=== PATIENT | male | born 1990 | race Caucasian/White ===

== ENCOUNTER 2017-03-03 21:02 | Emergency (ER) | payer BC, OTHER ==
[~2017-03-03] VITALS: Ht 172.7 cm; Wt 100.0 kg
[2017-03-03 21:08] VITALS: Ht 172.7 cm; Wt 100.0 kg
--- NOTE | 2017-03-03 21:33 | ERA ---
ER Documentation Chief Complaint Date/Time DATE: 03/03/17 TIME: 21:32 Chief Complaint n/v/d HPI Patient is a 26-year-old male, presenting to the ER because of nausea, vomiting , diarrhea, fever that began today. He complains of dizziness and tingling on the upper extremities and epigastric abdominal discomfort. He denies chest pain , dyspnea, dysuria. He denies any recent traveling or eating any new foods recently. He smokes socially, drinks socially, smokes marijuana Past medical history: History of peptic ulcer disease Past surgical history: Appendectomy ROS All systems reviewed and are negative except as per history of present illness. Medications Home Meds Active Scripts Loperamide Hcl* (Imodium*) 2 Mg Capsule, 2 MG PO .AFTER EA LOOSE BM Y for DIARRHEA, #10 TAB Prov:ROSIE TODD MD 03/04/17 Ibuprofen* (Motrin*) 600 Mg Tab, 600 MG PO Q6H Y for PAIN AND OR ELEVATED TEMP, #20 TAB Prov:ROSIE TODD MD 03/04/17 Ciprofloxacin Hcl* (Ciprofloxacin Hcl*) 500 Mg Tablet, 500 MG PO BID for 3 Days , TAB Prov:ROSIE TODD MD 03/04/17 Reported Medications Ibuprofen* (Ibuprofen*) 800 Mg Tab, 800 MG PO Q6H Y for PAIN, TAB 03/03/17 Tramadol Hcl* (Ultram*) 50 Mg Tablet, 50 MG PO Q6H Y for PAIN, TAB 03/03/17 Allergies Allergies: Coded Allergies: No Known Allergy (Unverified , 03/03/17) Physical Exam Vitals Vital Signs Date Time Temp Pulse Resp B/P Pulse Ox O2 Delivery O2 Flow Rate FiO2 03/04/17 01:32 99.0 94 15 109/45 100 Room Air 03/04/17 00:19 100.0 105 15 113/55 98 Room Air 03/03/17 21:08 102.6 139 20 105/74 98 Physical Exam Const: No acute distress. Dehydrated Head: Atraumatic. Eyes: Normal Conjunctiva. ENT: Normal External Ears, Nose and Mouth. Bilateral tympanic membranes and oropharynx are within normal limits Neck: Full range of motion. No meningismus. Resp: Clear to auscultation bilaterally. Cardio: Regular but tachycardic Abd: Soft, non distended, normal bowel sounds, vague and diffuse abdominal tenderness, more tenderness at the epigastric area Skin: No petechiae or rashes. Back: No midline or flank tenderness. Ext: No cyanosis, or edema. Neur: Awake and alert. No focal deficit Psych: Normal Mood and Affect. Result Diagram: 03/03/17213403/03/172134 Results 24 hrs Laboratory Tests Test 03/03/17 21:35 03/03/17 21:45 03/03/17 23:21 03/03/17 23:50 White Blood Count 13.610^3/ul Red Blood Count 5.2810^6/ul Hemoglobin 15.9g/dl Hematocrit 45.3% Mean Corpuscular Volume 85.8fl Mean Corpuscular Hemoglobin 30.1pg Mean Corpuscular Hemoglobin Concent 35.1g/dl Red Cell Distribution Width 12.8% Platelet Count 23632^3/UL Mean Platelet Volume 8.9fl Neutrophils % 85.6% Lymphocytes % 6.5% Monocytes % 6.2% Eosinophils % 0.8% Basophils % 0.2% Nucleated Red Blood Cells % 0.0/100WBC Neutrophils # 11.710^3/ul Lymphocytes # 0.910^3/ul Monocytes # 0.910^3/ul Eosinophils # 0.110^3/ul Basophils # 0.010^3/ul Nucleated Red Blood Cells # 0.010^3/ul Prothrombin Time 12.8Sec Prothrombin Time Ratio 1.0 INR International Normalized Ratio 0.96 Activated Partial Thromboplast Time 26.3Sec Sodium Level 139mmol/L Potassium Level 3.4mmol/L Chloride Level 107mmol/L Carbon Dioxide Level 24mmol/L Anion Gap 11 Blood Urea Nitrogen 15mg/dl Creatinine 0.76mg/dl Glucose Level 108mg/dl Calcium Level 9.1mg/dl Total Bilirubin 1.0mg/dl Direct Bilirubin 0.00mg/dl Indirect Bilirubin 1.0mg/dl Aspartate Amino Transf (AST/SGOT) 40IU/L Alanine Aminotransferase (ALT/SGPT) 104IU/L Alkaline Phosphatase 68IU/L Troponin I < 0.012ng/ml Total Protein 7.5g/dl Albumin 4.4g/dl Globulin 3.10g/dl Albumin/Globulin Ratio 1.41 Lactic Acid Level 1.9mmol/L 1.0mmol/L Bedside Urine pH (LAB) 8.5 Bedside Urine Protein (LAB) Negative Bedside Urine Glucose (UA) Negative Bedside Urine Ketones (LAB) Negative Bedside Urine Blood Negative Bedside Urine Nitrite (LAB) Negative Bedside Urine Leukocyte Esterase (L Negative Current Medications Medications (Trade) Dose Ordered Sig/Jackelyn Route PRN Reason Start Time Stop Time Status Last Admin Dose Admin Sodium Chloride (NS) 3,100 ml BOLUS OVER 2 HOURS STAT IV* 03/03/17 21:40 03/03/17 21:43 DC 03/03/17 22:04 Acetaminophen (Tylenol Tab) 650 mg ONCE STAT PO 03/03/17 21:40 03/03/17 21:43 DC 03/03/17 22:07 Ibuprofen (Motrin) 600 mg ONCE ONCE PO 03/03/17 22:00 03/03/17 22:01 DC 03/03/17 22:07 Ondansetron HCl (Zofran Inj) 4 mg ONCE STAT IV 03/03/17 21:40 03/03/17 21:43 DC 03/03/17 22:07 Procedures/[place] [id number] Radiology Main Line: [phone] DIAGNOSTIC IMAGING REPORT Patient: KAREN FALL : 1990 Age: 26 Sex: M MR #: [id number] DOS: 03/03/172139 Ordering MD: ROSIE TODD MD Location: E/R Room/Bed: PROCEDURE: XR Chest. CLINICAL INDICATION: Possible sepsis. TECHNIQUE: Single frontal view of the chest. COMPARISON: None. FINDINGS: The cardiomediastinal silhouette is within normal limits. The lungs are clear. No signs of pleural fluid or pneumothorax are seen. The osseous structures and soft tissues are unremarkable. IMPRESSION: No evidence for active cardiopulmonary disease. RPTAT: [facility] Physician Turner Date Time Electronically viewed and signed by Physician Turner on 03/03/2017 23:29 RS/ CC: ROSIE TODD MD [place] [id number] Radiology Main Line: [phone] DIAGNOSTIC IMAGING REPORT Patient: KAREN FALL : 1990 Age: 26 Sex: M MR #: [id number] DOS: 03/03/17 2140 Ordering MD: ROSIE TODD MD Location: E/R Room/Bed: PROCEDURE: CT ABDOMEN/PELVIS WITHOUT CONTRAST CLINICAL INDICATION: 26-year-old male with epigastric pain. TECHNIQUE: The study was performed utilizing a [employer] VCT 64-slice CT scanner. Direct axial sections were obtained through the abdomen and pelvis without the use of intravenous contrast material. Sagittal and coronal reformations were obtained. One or more of the following dose reduction techniques were utilized: automated exposure control, adjustment of the mA and/ or kV according to patient's size or use of iterative reconstruction technique. The images were reviewed on a PACS workstation. CTD/vol = 21.6 mGy; Total Exam DLP = 1339.2 mGy-cm. COMPARISON: None. FINDINGS: There is trace bibasilar subsegmental atelectasis. There is no evidence for significant pleural effusion. The liver has a normal size and contour without focal areas of abnormal density. No intrahepatic nor extrahepatic biliary ductal dilatation is seen. The gallbladder demonstrates no wall thickening nor pericholecystic fluid. No biliary stones are evident. The pancreas is without areas of abnormal attenuation. The spleen is identified and has a normal size without abnormal density. The adrenal glands are unremarkable. The kidneys are without abnormal density. No hydroureteronephrosis nor nephroureterolithiasis is evident. The urinary bladder contains urine. There is mild fluid identified throughout the small bowel without transition point suggestive of an enteritis. There is no evidence for bowel obstruction. Multiple surgical clips are seen within the right lower quadrant from prior appendectomy. There is no significant free fluid. The aortoiliac vessels are without aneurysmal dilatation. The osseous structures are intact. IMPRESSION: 1. Mild fluid identified within the small bowel without evidence for obstruction. This is suggestive of an enteritis. 2. Status post appendectomy. .Lawrence Arellano MD, MD Date Time Electronically viewed and signed by .Lawrence Arellano MD, MD on 03/03/2017 23:36 .M/ CC: ROSIE TODD MD EKG: Read by emergency physician Rate/Rhythm: Sinus tachycardia 120 beats/min QRS, ST, T-waves: No ST elevation, no T inversion Impression: Abnormal EKG MEDICAL MAKING DECISION: The patient is a 26-year-old male, presenting with acute enteritis, acute dehydration, acute hypokalemia. He was treated with normal saline 30 mL/kg IV for acute dehydration, Zofran 4 mg IV for nausea and potassium chloride 20 mEq p.o. for low potassium, Motrin and Tylenol for fever with good response. On multiple reevaluation, abdominal exams were unremarkable ; he felt better, his vital signs normalized The differential diagnoses considered include but are not limited to food poisoning, gastroenteritis, colitis, cholelithiasis, cholecystitis, cystitis, pancreatitis, hepatitis, gastritis, peptic ulcer disease, gastric ulcer, appendicitis, diverticulitis, cholangitis, choledocholithiasis, partial small bowel obstruction. Departure Diagnosis: Primary Impression: Enteritis Additional Impressions: Vomiting and diarrhea Hypokalemia Dehydration Condition: Good Comments He was discharged with Cipro, Imodium, Motrin I discussed the findings with the patient. I advised the patient to follow-up with the primary physician in about 1-2 days, sooner if needed and return if any concern. ROSIE TODD MD March 03, 2017 21:33
[2017-03-03] MEDS ORDERED: ONDANSETRON 4 MG INJ IV STA (21:40)
[2017-03-03] MEDS ORDERED: SODIUM CHLORIDE 0.9% 1L BAG IV* STA (21:40)
[2017-03-03] MEDS ORDERED: ACETAMINOPHEN 325 MG TAB PO STA (21:40)
[2017-03-03] MEDS ORDERED: IBUPROFEN 600 MG TAB PO ONE (22:00)
[2017-03-03 22:09] LABS: ADD SCAN DIFF NO
[2017-03-03 22:12] LABS: BASOPHILS % 0.2 % (0.0-2.0); EOSINOPHILS # 0.1 10^3/ul (0.0-0.5); EOSINOPHILS % 0.8 % (0.0-7.0); HEMATOCRIT 45.3 % (42.0-52.0); HEMOGLOBIN 15.9 g/dl (14.0-18.0); LYMPHOCYTES # 0.9 10^3/ul (0.8-2.9); LYMPHOCYTES % 6.5 % (15.0-51.0); MEAN CORPUSCULAR HEMOGLOBIN 30.1 pg (29.0-33.0); MEAN CORPUSCULAR HGB CONC 35.1 g/dl (32.0-37.0); MEAN CORPUSCULAR VOLUME 85.8 fl (82.0-101.0); MEAN PLATELET VOLUME 8.9 fl (7.4-10.4); MONOCYTE # 0.9 10^3/ul (0.3-0.9); MONOCYTES % 6.2 % (0.0-11.0); NEUTROPHIL # 11.7 10^3/ul (1.6-7.5); NEUTROPHILS % 85.6 % (39.0-77.0); PLATELET COUNT 290 10^3/UL (140-415); RED BLOOD COUNT 5.28 10^6/ul (4.70-6.10); RED CELL DISTRIBUTION WIDTH 12.8 % (11.5-14.5); WHITE BLOOD COUNT 13.6 10^3/ul (4.8-10.8)
[2017-03-03 22:28] LABS: INR 0.96; PROTIME 12.8 Sec (12.2-14.2)
[2017-03-03 22:29] LABS: ALBUMIN 4.4 g/dl (3.3-4.9); CHLORIDE 107 mmol/L (97-110); PARTIAL THROMBOPLASTIN TIME 26.3 Sec (25.0-35.0); POTASSIUM 3.4 mmol/L (3.5-5.1); SODIUM 139 mmol/L (135-144)
[2017-03-03 22:31] LABS: ALBUMIN/GLOBULIN RATIO 1.41; ANION GAP 11 (8-16); ASPARTATE AMINO TRANSFERASE 40 IU/L (15-46); CARBON DIOXIDE 24 mmol/L (21-31); CREATININE 0.76 mg/dl (0.61-1.24); TOTAL PROTEIN 7.5 g/dl (6.1-8.1)
[2017-03-03 22:32] LABS: ALANINE AMINOTRANSFERASE 104 IU/L (13-69); ALKALINE PHOSPHATASE 68 IU/L (42-121); BLOOD UREA NITROGEN 15 mg/dl (7-20); CALCIUM 9.1 mg/dl (8.4-10.2); GLUCOSE 108 mg/dl (70-220)
[2017-03-03 22:44] LABS: TROPONIN-I < 0.012 ng/ml (0.00-0.12)
[2017-03-03] MEDS ORDERED: IBUP800T25 PO (22:49)
[2017-03-03] MEDS ORDERED: TRAM-40 PO (22:49)
[2017-03-03 23:19] LABS: URINE BLOOD (Dip) POC Negative (NEGATIVE)
--- NOTE | 2017-03-03 23:29 | RADRPT ---
PROCEDURE: XR Chest. CLINICAL INDICATION: Possible sepsis. TECHNIQUE: Single frontal view of the chest. COMPARISON: None. FINDINGS: The cardiomediastinal silhouette is within normal limits. The lungs are clear. No signs of pleural f luid or pneumothorax are seen. The osseous structures and soft tissues are unremarkable. IMPRESSION: No evidence for active cardiopulmonary disease. RPTAT: [facility] Physician Turner Date Time Electronically viewed and signed by Physician Turner on 03/03/2017 23:29 RS/
[2017-03-03 23:32] LABS: ADD UMIC NO; URINE BILIRUBIN (Dip) NEGATIVE (NEGATIVE); URINE BLOOD (Dip) NEGATIVE (NEGATIVE); URINE COLOR LT. YELLOW (YELLOW); URINE GLUCOSE (Dip) NEGATIVE (NEGATIVE); URINE KETONES (Dip) NEGATIVE (NEGATIVE); URINE LEUKOCYTE ESTERASE (Dip) NEGATIVE (NEGATIVE); URINE NITRITE (Dip) NEGATIVE (NEGATIVE); URINE TOTAL PROTEIN (Dip) NEGATIVE (NEGATIVE); URINE UROBILINOGEN (Dip) 1.0 E.U./dL (0.1-1.0)
--- NOTE | 2017-03-03 23:37 | RADRPT ---
PROCEDURE: CT ABDOMEN/PELVIS WITHOUT CONTRAST CLINICAL INDICATION: 26-year-old male with epigastric pain. TECHNIQUE: The study was performed utilizing a [employer] VCT 64-slice CT scanner. Direct axia l sections were obtained through the abdomen and pelvis without the use of intravenous contrast mate rial. Sagittal and coronal reformations were obtained. One or more of the following dose reduction t echniques were utilized: automated exposure control, adjustment of the mA and/or kV according to pat ient's size or use of iterative reconstruction technique. The images were reviewed on a PACS workst [employer]. CTD/vol = 21.6 mGy; Total Exam DLP = 1339.2 mGy-cm. COMPARISON: None. FINDINGS: There is trace bibasilar subsegmental atelectasis. There is no evidence for significant pleural eff usion. The liver has a normal size and contour without focal areas of abnormal density. No intrahep atic nor extrahepatic biliary ductal dilatation is seen. The gallbladder demonstrates no wall thicke alina nor pericholecystic fluid. No biliary stones are evident. The pancreas is without areas of abno rmal attenuation. The spleen is identified and has a normal size without abnormal density. The adre nal glands are unremarkable. The kidneys are without abnormal density. No hydroureteronephrosis nor nephroureterolithiasis is evident. The urinary bladder contains urine. There is mild fluid identifie d throughout the small bowel without transition point suggestive of an enteritis. There is no evide nce for bowel obstruction. Multiple surgical clips are seen within the right lower quadrant from pr ior appendectomy. There is no significant free fluid. The aortoiliac vessels are without aneurysmal dilatation. The osseous structures are intact. IMPRESSION: 1. Mild fluid identified within the small bowel without evidence for obstruction. This is suggesti ve of an enteritis. 2. Status post appendectomy. .Lawrence Arellano MD, Date Time Electronically viewed and signed by .Lawrence Arellano MD, MD on 03/03/2017 23:36 .Filomena/
[2017-03-04] MEDS ORDERED: CIPR500T4 PO (00:13)
[2017-03-04] MEDS ORDERED: LOPE2CAP PO (00:14)
[2017-03-04] MEDS ORDERED: IBUP-1542 PO (00:14)
[2017-03-04 01:32] VITALS: BP 109/45; PULSE 94; RESP 15; TEMP 99
== END 2017-03-04 01:42 | disposition home or self-care (01) ==
LOC: E/R 21:02
DX: K52.9 Noninfective gastroenteritis and colitis, unspecified (principal); E87.6 Hypokalemia; E86.0 Dehydration; R50.9 Fever, unspecified; R10.13 Epigastric pain
CPT/HCPCS: 36415; 71010; 74176; 80053; 81003; 83605; 84484; 85025; 85610; 85730; 87040; 87086; 93005; 96374; 99285; J2405; J7030

== ENCOUNTER 2017-03-08 08:10 | Emergency (ER) | payer BC ==
[~2017-03-08] VITALS: Ht 167.6 cm; Wt 90.0 kg
[~2017-03-08 08:10] MED LIST: CIPR500T4 PO; IBUP-1542 PO; IBUP800T25 PO; LOPE2CAP PO; TRAM-40 PO
[2017-03-08 08:13] VITALS: Ht 167.6 cm; Wt 90.0 kg
[2017-03-08] MEDS ORDERED: IBUP-1542 PO (08:37)
--- NOTE | 2017-03-08 08:52 | ERD ---
ER Documentation Chief Complaint Date/Time DATE: 03/08/17 TIME: 08:50 Chief Complaint sores to bottom lip x 2 days. HPI 26-year-old man complaining of lower lip pain and swelling 2 days. Denies biting his lip, denies trauma, no fevers or chills, no difficulty swallowing, no complaints of chest pain or shortness of breath ROS All systems reviewed and are negative except as per history of present illness. Medications Home Meds Active Scripts Ibuprofen* (Ibuprofen*) 600 Mg Tablet, 600 MG PO Q8 for PAIN AND/OR INFLAMMATION , #30 TAB Prov:JAMIE PALACIOS MD 03/08/17 Loperamide Hcl* (Imodium*) 2 Mg Capsule, 2 MG PO .AFTER EA LOOSE BM Y for DIARRHEA, #10 TAB Prov:ROSIE TODD MD 03/04/17 Ibuprofen* (Motrin*) 600 Mg Tab, 600 MG PO Q6H Y for PAIN AND OR ELEVATED TEMP, #20 TAB Prov:ROSIE TODD MD 03/04/17 Ciprofloxacin Hcl* (Ciprofloxacin Hcl*) 500 Mg Tablet, 500 MG PO BID for 3 Days , TAB Prov:ROSIE TODD MD 03/04/17 Reported Medications Ibuprofen* (Ibuprofen*) 800 Mg Tab, 800 MG PO Q6H Y for PAIN, TAB 03/03/17 Tramadol Hcl* (Ultram*) 50 Mg Tablet, 50 MG PO Q6H Y for PAIN, TAB 03/03/17 Allergies Allergies: Coded Allergies: No Known Allergy (Unverified , 03/03/17) PMhx/Soc None History of Surgery: Yes (appendectomy) Hx Miscellaneous Medical Probl: Yes (gastric ulcers) Hx Alcohol Use: Yes (occasional ) Hx Substance Use: No Hx Tobacco Use: No Smoking Status: Never smoker FmHx Family History: No diabetes Physical Exam Vitals Vital Signs Date Time Temp Pulse Resp B/P Pulse Ox O2 Delivery O2 Flow Rate FiO2 03/08/17 08:13 97.0 83 18 115/63 99 Physical Exam GENERAL: Well-developed, well-nourished, well-hydrated, in no apparent distress , looks nontoxic in appearance HEENT: Moist mucous membranes, pink conjunctiva, no cervical spine tenderness or step-off deformities, no goiter, no jaundice or icterus, extraocular movements intact without pain. No submandibular induration, and no pharyngeal erythema NEURO: Alert and oriented 3, cranial nerves II through XII intact bilaterally, pupils equal round reactive to light, no focal deficits or facial asymmetry, sensation intact distally Strength 5/5 in upper and lower extremities bilaterally CARDIAC: Regular rate and rhythm, no murmurs rubs or gallops LUNGS: Clear bilaterally no wheezing crackles or stridor ABDOMEN: Soft nontender, no guarding, no rigidity, no rebound, no psoas sign no obturator sign. Normoactive bowel sounds SKIN: Warm and dry to touch, aphthous ulcer to the mucosal side of the lower lip without active bleeding or discharge. No target lesions or ulcerations to the skin EXTREMITIES: No clubbing cyanosis or edema, calves are bilaterally symmetrical, no Homans sign, no popliteal cord sign. Distal pulses equal and bilateral PSYCH: Normal affect without agitation or irritability Results 24 hrs Current Medications Medications (Trade) Dose Ordered Sig/Jackelyn Route PRN Reason Start Time Stop Time Status Last Admin Dose Admin Lidocaine (Xylocaine (Viscous)) 15 ml ONCE ONCE PO 03/08/17 09:00 03/08/17 09:00 DC 03/08/17 08:39 Ibuprofen (Motrin) 600 mg ONCE ONCE PO 03/08/17 09:00 03/08/17 09:00 DC 03/08/17 08:39 Procedures/MDM Reassurance was provided to the patient and I also administered lidocaine 2% jelly to the mucosal side of the lower lip as an anesthetic, as well as ibuprofen 600 mg p.o. Differential diagnoses considered, included but not limited to syphilis, erythema multiforme, abscess, foreign body, cellulitis, Guerrero-Cristian syndrome , as well as metabolic, hematologic, electrolyte emergencies. Patient feels much better at this time, and vital signs are normal, symptoms have improved. I did give strict instructions to return to the ED if symptoms continue or worsen, patient will otherwise follow-up with primary care physician. Patient understood instructions and agreed to plan. Disclaimer: Inadvertent spelling or grammatical errors are likely due to EHR/ dictation software use and do not reflect on the overall quality of patient care. Departure Diagnosis: Primary Impression: Herpes simplex Additional Impression: Aphthous ulcer of mouth Condition: Good Patient Instructions: Aphthous Ulcer JAMIE PALACIOS MD Mar 08, 2017 08:52
[2017-03-08] MEDS ORDERED: IBUPROFEN 600 MG TAB PO ONE (09:00)
[2017-03-08] MEDS ORDERED: LIDOCAINE 2% VISC 15 ML CUP PO ONE (09:00)
== END 2017-03-08 08:44 | disposition home or self-care (01) ==
LOC: E/R 08:10
DX: B00.9 Herpesviral infection, unspecified (principal); K12.0 Recurrent oral aphthae
CPT/HCPCS: 99283

== ENCOUNTER → 2017-12-23 | Outpatient (CLI) | END | disposition home or self-care (01) ==

== ENCOUNTER → 2019-01-05 | Outpatient (CLI) | payer BC ==
[~2019-01-05] MED LIST changes: +BENZ-6 PO; +D-ME473S2 PO; +IBUP-1545 PO; -IBUP800T25 PO; -TRAM-40 PO; +TRAM50TA PO
== END | disposition home or self-care (01) ==
LOC: LAB 08:48
PROVIDERS: ATTEND Legal Medicine
DX: Z00.00 Encounter for general adult medical examination without abnormal findings (principal)
CPT/HCPCS: 80053; 80061; 81003; 82607; 82746; 83036; 83540; 84403; 84443; 85025

== ENCOUNTER → 2019-03-02 | Outpatient (CLI) | payer BC | END | disposition home or self-care (01) | LOC: RAD 12:45 | PROVIDERS: ATTEND Legal Medicine | DX: M25.571 Pain in right ankle and joints of right foot (principal) ==